=== PATIENT | female | born 1935 | race Caucasian/White ===

== ENCOUNTER 2018-05-10 19:54 | Inpatient (IN) | payer OTHER, MEDICAID ==
[~2018-05-10] VITALS: Ht 154.9 cm; Wt 63.5 kg
[2018-05-10 20:24] LABS: BASOPHIL % 1.2 % (0-2); PLATELET COUNT 201 x10^3mcL (130-400); RED CELL DISTRIBUTION WIDTH 13.7 % (11.5-14.5)
[2018-05-10 20:32] LABS: CALCIUM 9.8 mg/dL (8.5-10.1); CARBON DIOXIDE 29.6 mmol/L (21-32); CHLORIDE SERUM 100 mmol/L (98-107); CREATININE SERUM 0.7 mg/dL (0.6-1.0); GLUCOSE SERUM 104 mg/dL (74-106); POTASSIUM SERUM 3.4 mmol/L (3.5-5.1); SODIUM SERUM 139 mmol/L (136-145)
[2018-05-10 20:36] LABS: ALBUMIN 3.8 g/dL (3.4-5.0); ALKALINE PHOSPHATASE 56 U/L (46-116); ALT/SGPT 14 U/L (14-59); AST/SGOT 12 U/L (15-37); BILIRUBIN TOTAL 0.4 mg/dL (0.20-1.00); TOTAL PROTEIN, SERUM 7.2 g/dL (6.4-8.2)
[2018-05-10] MEDS ORDERED: PROAIR HFA8.5 GM IH (21:28)
[2018-05-10] MEDS ORDERED: ARICEPT5 MG PO (21:28)
[2018-05-10] MEDS ORDERED: COZAAR100 MG PO (21:28)
[2018-05-10] MEDS ORDERED: VITAMIN D32000 I2 PO (21:28)
[2018-05-10 22:59] VITALS: BP 165/82
[2018-05-11 00:08] LABS: PHOSPHOROUS 3.9 mg/dL (2.5-4.9)
[2018-05-11 00:12] LABS: CHOLESTEROL/HDL RATIO 4.3
[2018-05-11 00:17] LABS: T3 TOTAL 1.14 ng/mL
[2018-05-11 00:18] LABS: FREE T4 0.98 ng/dL (0.76-1.46); FREE THYROXINE INDEX 2.7 ug/dL (1.4-4.5); T4(THYROXINE) 8.3 ug/dL (4.7-13.3)
[2018-05-11 01:15] VITALS: BP 144/68
[2018-05-11 06:12] VITALS: BP 124/68
[2018-05-11 06:35] LABS: microscopic required? NO
[2018-05-11 06:37] LABS: BASOPHIL % 0.4 % (0-2); PLATELET COUNT 187 x10^3mcL (130-400); RED CELL DISTRIBUTION WIDTH 13.8 % (11.5-14.5)
[2018-05-11 06:51] LABS: CALCIUM 9.9 mg/dL (8.5-10.1); CARBON DIOXIDE 29.8 mmol/L (21-32); CHLORIDE SERUM 104 mmol/L (98-107); CREATININE SERUM 0.7 mg/dL (0.6-1.0); GLUCOSE SERUM 91 mg/dL (74-106); PHOSPHOROUS 3.9 mg/dL (2.5-4.9); POTASSIUM SERUM 4.9 mmol/L (3.5-5.1); SODIUM SERUM 140 mmol/L (136-145)
[2018-05-11 07:56] LABS: UA SPECIFIC GRAVITY 1.015 (1.005-1.035); urine erythrocyte NEGATIVE (NEGATIVE)
[2018-05-11 14:59] VITALS: BP 141/74; BP 170/1
[2018-05-11] MEDS ORDERED: MOT600 PO (15:43)
[2018-05-11 16:16] VITALS: BP 141/74
== END 2018-05-11 17:35 | disposition home or self-care (01) | DRG 205 ==
LOC: ED 19:54 → DU 22:06
PROVIDERS: Emergency Medicine; Family Medicine
DX: M94.0 Chondrocostal junction syndrome [Tietze] (principal); N17.0 Acute kidney failure with tubular necrosis; E87.6 Hypokalemia; I10 Essential (primary) hypertension; E78.5 Hyperlipidemia, unspecified; G30.9 Alzheimer's disease, unspecified; F02.80 Dementia in other diseases classified elsewhere, unspecified severity, without behavioral disturbance, psychotic disturbance, mood disturbance, and anxiety; J45.909 Unspecified asthma, uncomplicated; M19.90 Unspecified osteoarthritis, unspecified site
CPT/HCPCS: 83880; 84439; J1885; J2270; J7030; Q0092